=== PATIENT | female | born 1960 | race Caucasian/White ===

== ENCOUNTER 2019-03-23 08:46 | Emergency (ER) | payer OTHER ==
[~2019-03-23] VITALS: Ht 167.6 cm; Wt 76.1 kg
[2019-03-23 09:00] VITALS: Ht 167.6 cm; Wt 76.1 kg
[2019-03-23] MEDS ORDERED: ONDANSETRON 4 MG INJ IV STA (09:36)
[2019-03-23] MEDS: MECLIZINE 12.5 MG TAB PO ONE ×2 (10:04→10:53)
[2019-03-23] MEDS ORDERED: ONDA4TAB8 PO (11:29)
[2019-03-23] MEDS ORDERED: MECL12.574 PO (11:30)
--- NOTE | 2019-03-23 11:32 | ERD ---
ER Documentation Chief Complaint Chief Complaint dizziness & headache x4 days HPI 58-year-old female presented to ED for dizziness and headache x4 days. Patient states that she did have some heart palpitations the other day. Patient states that sometimes she gets dizzy and feels like she is going to faint but has not fainted. Patient denies any blurry vision. Patient states that her headache is a 4 out of 10. Patient's daughter is presenting to the ED with her and states that she has not noticed any thing different with her mother and states that she does get dizzy from time to time and she takes meclizine for this. The daughter and patient both deny any loss of consciousness, confusion, unsteady gait. Patient has no allergies to medication and is currently take medications for diabetes blood pressure and vertigo. ROS All systems reviewed and are negative except as per history of present illness. Medications Home Meds Active Scripts Meclizine Hcl* (Antivert*) 12.5 Mg Tab, 12.5 MG PO Q6H PRN for DIZZINESS, #20 TAB Prov:CORTNEY ORDAZ PA-C 03/23/19 Ondansetron Hcl* (Zofran*) 4 Mg Tablet, 4 MG PO Q6H for NAUSEA AND/OR VOMITING, #30 TAB Prov:CORTNEY ORDAZ PA-C 03/23/19 Allergies Allergies: Coded Allergies: No Known Allergy (Unverified , 03/23/19) PMhx/Soc Medical and Surgical Hx: pt denies Surgical Hx Hx Cardiac Disorders: Yes (HTN,HYPERCHOLESTEROLEMIA) Hx Psychiatric Problems: No Hx Miscellaneous Medical Probl: No Hx Alcohol Use: No Hx Substance Use: No Hx Tobacco Use: No Smoking Status: Never smoker FmHx Family History: No diabetes, No coronary disease, No other Physical Exam Vitals Vital Signs Date Temp Pulse Resp B/P (MAP) Pulse Ox O2 O2 Flow FiO2 Time Delivery Rate 03/23/19 98.1 63 18 122/78 100 Room Air 11:53 (93) 03/23/19 98.0 64 18 146/91 100 09:00 (109) Physical Exam Const: No acute distress Head: Atraumatic Eyes: Normal Conjunctiva ENT: Normal External Ears, Nose and Mouth. Neck: Full range of motion. No meningismus. Resp: Clear to auscultation bilaterally Cardio: Regular rate and rhythm, no murmurs Abd: Soft, non tender, non distended. Normal bowel sounds Skin: No petechiae or rashes Back: No midline or flank tenderness Ext: No cyanosis, or edema Neur: horizontal nystagmus Psych: Normal Mood and Affect [place] stroke scale No pronator drift, no slurred speech, no muscle asymmetry or weakness Result Diagram: 03/23/19 1005 03/23/19 1005 Results 24 hrs Laboratory Tests Test 03/23/19 10:05 White Blood Count 6.7 10^3/ul Red Blood Count 4.31 10^6/ul Hemoglobin 12.6 g/dl Hematocrit 38.7 % Mean Corpuscular Volume 89.8 fl Mean Corpuscular Hemoglobin 29.2 pg Mean Corpuscular Hemoglobin Concent 32.6 g/dl Red Cell Distribution Width 13.2 % Platelet Count 191 10^3/UL Mean Platelet Volume 12.1 fl Immature Granulocytes % 0.300 % Neutrophils % 56.9 % Lymphocytes % 30.9 % Monocytes % 10.0 % Eosinophils % 1.2 % Basophils % 0.7 % Nucleated Red Blood Cells % 0.0 /100WBC Immature Granulocytes # 0.020 10^3/ul Neutrophils # 3.8 10^3/ul Lymphocytes # 2.1 10^3/ul Monocytes # 0.7 10^3/ul Eosinophils # 0.1 10^3/ul Basophils # 0.1 10^3/ul Nucleated Red Blood Cells # 0.0 10^3/ul Urine Color STRAW Urine Clarity CLEAR Urine pH 6.0 Urine Specific [place] 1.001 Urine Ketones NEGATIVE mg/dL Urine Nitrite NEGATIVE mg/dL Urine Bilirubin NEGATIVE mg/dL Urine Urobilinogen NEGATIVE mg/dL Urine Leukocyte Esterase NEGATIVE [place]/ul Urine Hemoglobin NEGATIVE mg/dL Urine Glucose 3+ mg/dL Urine Total Protein NEGATIVE mg/dl Sodium Level 141 mmol/L Potassium Level 4.1 mmol/L Chloride Level 102 mmol/L Carbon Dioxide Level 28 mmol/L Anion Gap 11 Blood Urea Nitrogen 9 mg/dl Creatinine 0.48 mg/dl Est Glomerular Filtrat Rate mL/min > 60 mL/min Glucose Level 238 mg/dl Calcium Level 9.8 mg/dl Total Bilirubin 0.5 mg/dl Direct Bilirubin 0.00 mg/dl Indirect Bilirubin 0.5 mg/dl Aspartate Amino Transf (AST/SGOT) 38 IU/L Alanine Aminotransferase (ALT/SGPT) 43 IU/L Alkaline Phosphatase 107 IU/L B-Type Natriuretic Peptide 110 PG/ML Total Protein 8.0 g/dl Albumin 4.4 g/dl Globulin 3.60 g/dl Albumin/Globulin Ratio 1.22 Current Medications Medications Dose Sig/Casey Start Time Status Last (Trade) Ordered Route PRN Stop Time Admin Dose Reason Admin Meclizine 12.5 mg ONCE ONCE 03/23/19 DC HCl PO 10:00 03/23/19 (Antivert) 10:50 Ondansetron 4 mg ONCE STAT 03/23/19 DC 03/23/19 HCl (Zofran IV 09:36 03/23/19 10:04 Inj) 09:42 Procedures/MDM EKG: Read by Dr. PERRY attending physician. EKG shows sinus bradycardia rhythm at rate of 57 No arrhythmias, acute ST elevations or T wave changes were noted. Diagnostic imaging: Read by radiologist ROCEDURE: XR Chest. CLINICAL INDICATION: Shortness of breath TECHNIQUE: PA and lateral chest x-ray. COMPARISON: None. FINDINGS: No focal opacification is seen. There is no pleural effusion or pneumothorax. The cardiomediastinal silhouette is within normal limits. The osseous structures are unremarkable. IMPRESSION: No acute cardiopulmonary process. Procedures: None Medications given in ER: Zofran Meclizine was withheld because the patient stated she took it in the waiting room prior to be seen Patient tolerated medication well with no adverse reactions. Patient reported improvement in pain. Medical decision making: Patient is a 58-year-old female presenting to the ED for dizziness and headache and arm numbness x5 days. Patient states that this is in the first time this has happened. Patient denies any shortness of breath or chest pain associated with this. Patient's physical exam was unremarkable patient's neuro exam only showed horizontal nystagmus which was mild. Patient does have a history of vertigo. Patient's EKG showed sinus bradycardia at a rate of 57 with no signs of heart blocks. Patient's UA showed increased level of glucose, patient's blood work also showed that the glucose was high. Patient does have a history of diabetes and states that she is taking her medications. At this time I have low suspicion for CVA, TIA, intracranial hemorrhage, meningitis, encephalitis, C O poisoning, temporal arteritis, benign intracranial hypertension, intracranial mass, glaucoma, preeclampsia, sinusitis, tension headache, migraine headache, cluster headache, congestive heart failure, [place], sepsis, DKA. Patient was advised that she probably needs to follow-up with her primary care doctor regarding why her sugar levels are so high. I advised the patient that she may need to have her medications adjusted. At this time I advised the patient that she is safe for discharge and that she should follow-up with her primary care provider within 1 to 2 days regarding this visit. Patient was advised if symptoms worsen she should return to ER immediately. Patient is in agreement to the treatment plan and I discussed everything with her daughter as well. Both the patient and daughter feel comfortable with being discharged from the ER. And plan to follow-up with her primary care doctor tomorrow Prescription for home: Zofran Meclizine I have discussed with the patient proper use and common side effects to expert with the medication . I advised the patient/family to speak with the pharmacist dispensing the medication to be advised of any potential drug interactions with other medication or supplements they may be taking. Discharge: At this time, patient is stable for discharge and outpatient management. I have instructed the patient to follow-up with his\her primary care physician in 1 to 2 days. I have discussed with the patient the possibility of needing to see a specialist for further work-up and imaging studies if symptoms persist. I have instructed the patient to promptly return to the ER for any new or worsening symptoms including increased pain, fever, nausea, vomiting, weakness or LOC. The patient and\or family expressed understanding of and agreement with this plan. All questions were answered. Home care instructions were provided. Disclaimer: Inadvertent spelling and grammatical errors are likely due to EHR\dictation software use and do not reflect on the overall quality of patient care. Also, please note that the electronic time recorded on the note does not necessarily reflect the actual time of the patient encounter. Departure Diagnosis: Primary Impression: Dizziness Additional Impressions: BPV (benign positional vertigo) Laterality: unspecified laterality Qualified Codes: H81.10 - Benign paroxysmal vertigo, unspecified ear High glucose Condition: Stable Patient Instructions: Inner Ear Problems: Causes of Dizziness (Vertigo), Dizziness (Vertigo) and Balance Problems: Ensuring Your Safety, Dizziness, Unk Cause [facility] YOU HAVE RECEIVED A MEDICAL SCREENING EXAM AND THE RESULTS INDICATE THAT YOU DO NOT HAVE A CONDITION THAT REQUIRES URGENT TREATMENT IN THE EMERGENCY DEPARTMENT. FURTHER EVALUATION AND TREATMENT OF YOUR CONDITION CAN WAIT UNTIL YOU ARE SEEN I N YOUR DOCTORS OFFICE WITHIN THE NEXT 1-2 DAYS. IT IS YOUR RESPONSIBILITY TO MAKE AN APPOINTMENT FOR FOLOW-UP CARE. IF YOU HAVE A PRIMARY DOCTOR --you should call your primary doctor and schedule an appointment IF YOU DO NOT HAVE A PRIMARY DOCTOR YOU CAN CALL OUR PHYSICIAN REFERRAL HOTLINE AT IF YOU CAN NOT AFFORD TO SEE A PHYSICIAN YOU CAN CHOSE FROM THE FOLLOWING [facility] [address] [facility] [address] [facility] [address] [facility] [address] [facility] [facility] [address] [facility] [facility] [address] [facility]. [facility] YOU HAVE RECEIVED A MEDICAL SCREENING EXAM AND THE RESULTS INDICATE THAT YOU DO NOT HAVE A CONDITION THAT REQUIRES URGENT TREATMENT IN THE EMERGENCY DEPARTMENT. FURTHER EVALUATION AND TREATMENT OF YOUR CONDITION CAN WAIT UNTIL YOU ARE SEEN IN YOUR DOCTORS OFFICE WITHIN THE NEXT 1-2 DAYS. IT IS YOUR RESPONSIBILITY TO MAKE AN APPOINTMENT FOR FOLOW-UP CARE. IF YOU HAVE A PRIMARY DOCTOR --you should call your primary doctor and schedule and appointment IF YOU DO NOT HAVE A PRIMARY DOCTOR YOU CAN CALL OUR PHYSICIAN REFERRAL HOTLINE AT . IF YOU CAN NOT AFFORD TO SEE A PHYSICIAN YOU CAN CHOSE FROM THE FOLLOWING [facility] INSTITUTIONS: [facility] [address] [place] [address] [facility] [address] [place] [address] [facility] [address] [place] [address] Additional Instructions: Visite a lola laughlin para un EXAMEN.Regrese a estas instalaciones si no se mejora herlinda esperbamos o herlinda le dinadias. CORTNEY ORDAZ PA-C Mar 23, 2019 11:32
[2019-03-23 11:53] VITALS: BP 122/78; PULSE 63; RESP 18
== END 2019-03-23 11:55 | disposition home or self-care (01) ==
LOC: FTE 08:46
DX: H81.10 Benign paroxysmal vertigo, unspecified ear (principal); I10 Essential (primary) hypertension; R73.09 Other abnormal glucose
CPT/HCPCS: 71046; 80053; 81003; 83880; 85025; 93005; 96374; J2405; Z7502